=== PATIENT | male | born 1985 | race Hispanic/Latino ===

== ENCOUNTER 2016-08-27 17:09 | Emergency (ER) | payer OTHER ==
[2016-08-27] MEDS ORDERED: PANTOPRAZOLE 40MG INJ (PROTONIX) (C9113) As Ordered ONE (19:42)
[2016-08-27] MEDS ORDERED: ONDANSETRON 4MG/2ML VIAL (J2405) As Ordered ONE (19:42)
[2016-08-27] MEDS ORDERED: KETOROLAC 30 MG/ML VIAL (J1885) As Ordered ONE (19:42)
[2016-08-27 19:51] LABS: BASO % 0.1 % (0.0-1.0); EOS # 0.2 K/mm3 (0.0-0.50); EOS % 1.3 % (0.0-3.0); LARGE UNSTAINED CELL # 0.1 K/mm3 (0.0-0.4); LARGE UNSTAINED CELL % 0.5 % (0.0-4.0); LYMPH # 0.4 K/mm3 (1.5-4.5); MEAN CORPUSCULAR HEMOGLOBIN 30.6 pg (27.0-33.0); MEAN CORPUSCULAR VOLUME 87.4 fl (80.0-96.0); MONO # 0.2 K/mm3 (0.0-0.8); MONO % 1.4 % (0.0-5.0); NEUTROPHILS # 11.4 K/mm3 (1.8-7.7); NEUTROPHILS % 93.7 % (36.0-66.0); PLATELET COUNT, AUTOMATED 226 k/mm3 (150-450); RED CELL DISTRIBUTION WIDTH 12.3 % (11.5-14.5); WHITE BLOOD COUNT 12.1 K/mm3 (4.0-10.0)
[2016-08-27 20:18] LABS: ALBUMIN 5.1 GM/DL (3.2-5.2); ALBUMIN/GLOBULIN RATIO 1.34 (1.00-1.93); ALKALINE PHOSPHATASE 90 U/L (45-117); ALT/SGPT 46 U/L (12-78); AMYLASE 31 U/L (25-115); ANION GAP 10 MEQ/L (8-16); AST/SGOT 26 U/L (15-37); BILIRUBIN,DIRECT 0.2 MG/DL (0.0-0.2); BILIRUBIN,TOTAL 0.8 MG/DL (0.2-1.0); BLOOD UREA NITROGEN 17 MG/DL (7-18); CALCIUM LEVEL 10.4 MG/DL (8.5-10.1); CARBON DIOXIDE LEVEL 26 MEQ/L (21-32); CHLORIDE LEVEL 104 MEQ/L (98-107); CREATININE FOR GFR 1.14 MG/DL (0.70-1.30); GLOMERULAR FILTRATION RATE > 60.0 (>60); GLUCOSE, FASTING 114 MG/DL (70-105); POTASSIUM SERUM 4.3 MEQ/L (3.5-5.1); SODIUM LEVEL 140 MEQ/L (136-145); TOTAL PROTEIN 8.9 GM/DL (6.4-8.2)
--- NOTE | 2016-08-27 21:33 | EDDOCDS ---
Nurse's Notes [facility] Name: Kevon Valdez Age: 30 yrs Sex: Male : 1985 Arrival Date: 08/27/2016 Time: 17:09 Bed I7 / 29 Private MD: OHKULDEEP GONZALEZ Diagnosis: Nausea and vomiting;Diarrhea, unspecified Presentation: 08/27 17:11 Presenting complaint: Patient states: vomiting diarrhea since 7am. weak and just srm doesn't feel good. chest hurts. Adult Sepsis Screening: The patient does not have new or worsening altered mentation. Patient's respiratory rate is less than 22. Systolic blood pressure is greater than 100. Patient has a qSOFA score of 0- Negative Sepsis Screen. Suicide/Homicide risk assessment- the patient denies having any suicidal and/or homicidal ideations and does not present with any other emotional, behavioral or mental health complaints. 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 Transition of care: patient was not received from another setting of care. 17:11 Acuity: DENISE Level 3 [facility] 17:11 Method Of Arrival: Walkin/Carried/Asstd [facility] Triage Assessment: 17:13 General: Appears uncomfortable, Behavior is appropriate for age, cooperative. Pain: srm Pain currently is 10 out of 10 on a pain scale. Pt Declines HIV testing. Historical: - Allergies: no known allergies; - Home Meds: 1. none - PMHx: back pain- lower; - PSHx: Hernia repair; right shoulder surgery; - Social history: Smoking status: Patient states former smoker of tobacco. No barriers to communication noted, The patient speaks fluent Korean, Speaks appropriately for age. - Family history: Not pertinent. - : The pt / caregiver states he / she is not on anticoagulants. Home medication list is obtained from the patient. - Exposure Risk Screening:: None identified. Screenin:53 Screening information is obtained from the patient. Fall risk: No risks identified. af2 Assistance ADL's: requires no assistance with activities of daily living. Abuse/DV Screen: The patient / caregiver reports he/she is: not in a situation that causes fear, pain or injury. Nutritional screening: No deficits noted. Advance Directives: Currently, there is no health care proxy. home support is adequate. Assessment: 19:30 General: Appears in no apparent distress, uncomfortable, Behavior is appropriate for af2 age, cooperative. Pain: Location: abdomen Pain currently is 6 out of 10 on a pain scale. Neurological: Level of Consciousness is awake, alert, obeys commands, Oriented to person, place, time. Cardiovascular: Heart tones S1 S2 present. Respiratory: Airway is patent Respiratory effort is even, unlabored, Breath sounds are clear bilaterally. GI: Abdomen is non- distended Bowel sounds present X 4 quads. Abd is soft and non tender X 4 quads. Reports diarrhea, lower abdominal pain, upper abd pain, nausea, vomiting. Derm: Skin is normal. 21:31 General: Appears in no apparent distress, Behavior is cooperative. Pain: Location: mcp abdomen Pain currently is 2 out of 10 on a pain scale. Neurological: No deficits noted. Respiratory: Airway is patent Respiratory effort is even, unlabored. GI: Abdomen is non- distended Abd is soft X 4 quads. Derm: Skin is pink, warm & dry. Vital Signs: 17:10 BP 139 / 86; Pulse 88; Resp 18 S; Temp 98.5(O); Pulse Ox 100% on R/A; Weight 78.93 kg dd6 (R); Height 5 ft. 9 in. (175.26 cm) (R); 20:30 Pain 2/10; mcp 21:27 BP 123 / 62; Pulse 95; Resp 18; Temp 99.1; Pulse Ox 98% ; Pain 0/10; ajs 17:10 Body Mass Index 25.70 (78.93 kg, 175.26 cm) dd6 Vitals: 17:10 Log In Time: August 27, 2016 at 17:08. dd6 ED Course: 17:09 Patient visited by Joselito Langley PCA. dd6 17:09 Patient moved to Waiting dd6 17:10 [facility], KULDEEP PRATHER is Private Physician. dd6 17:11 Patient moved to Pre RCE dd6 17:12 Triage Initiated srm 18:39 Patient moved to Triage 3 dy 18:41 Patient visited by Madelyn Landa PCA. jb5 18:56 Rolo Crawford RPA-C is PHCP. ck7 18:56 Sterling Robison DO is Attending Physician. ck7 18:56 Patient visited by Rolo Crawford RPA-C. ck7 19:12 Patient visited by Rolo Crawford RPA-C. ck7 19:26 Patient moved to b 19:39 Amylase Sent. af2 19:39 Basic Metabolic Profile Sent. af2 19:39 CBC with Diff Sent. af2 19:39 Lipase Sent. af2 19:39 Liver Profile Sent. af2 19:51 Patient visited by Lydia Sharp RN. af2 19:53 The patient / caregiver is instructed regarding the plan of care and ED course. Patient af2 has correct armband on for positive identification. Placed in gown. 19:53 Inserted saline lock: 20 gauge in left antecubital area and blood collected. The af2 patient tolerated the procedure well. 19:53 No procedures done that require assistance. af2 19:54 Patient visited by Lydia Sharp RN. af2 20:25 [facility] Payment Agreement was scanned into [employer] and attached to record. zo 20:28 Patient visited by Lydia Sharp RN. af2 21:02 Patient visited by Rolo Crawford RPA-C. ck7 21:20 [facility] ck7 21:28 Patient visited by Radha Ahumada. ajs 21:31 Discontinued lock intact, bleeding controlled, pressure dressing applied, No mcp redness/swelling at site. Administered Medications: 19:55 Drug: ketorolac 30 mg [ketorolac 30 mg/mL (1 mL) injection solution (1 mL)] {Note: drug af2 given in left ac iv per KURT Cabello} Route: IM; Site: left deltoid; 20:30 Follow up: Pain 2/10 Adult; Response: Pain is decreased mcp 19:56 Drug: NS 0.9% 1000 ml [sodium chloride 0.9 % intravenous solution] Route: IV; Rate: af2 bolus; Site: left antecubital; 21:30 Follow up: IV Status: Completed infusion; IV Intake: 1000ml mcp 19:56 Drug: Ondansetron 4 mg [ondansetron HCl 2 mg/mL intravenous solution (2 mL)] Route: af2 IVP; Site: left antecubital; 19:56 Drug: pantoprazole 40 mg [pantoprazole 40 mg intravenous solution] Route: IV; Rate: af2 bolus; Site: left antecubital; Intake: 21:30 IV: 1000.00ml; Total: 1000.00ml. mcp Order Results: Lab Order: Amylase; SPEC'M 08/27/16 19:37 Test: AMYLASE; Value: 31; Range: 25-115; Units: U/L; Status: F Lab Order: Basic Metabolic Profile; SPEC'M 08/27/16 19:37 Test: GLUCOSE, FASTING; Value: 114; Range: 70-105; Abnormal: Above high normal; Units: MG/DL; Status: F Test: BLOOD UREA NITROGEN; Value: 17; Range: 7-18; Units: MG/DL; Status: F Test: CREATININE FOR GFR; Value: 1.14; Range: 0.70-1.30; Units: MG/DL; Status: F Test: GLOMERULAR FILTRATION RATE; Value: > 60.0; Range: >60; Status: F Test: SODIUM LEVEL; Value: 140; Range: 136-145; Units: MEQ/L; Status: F Test: POTASSIUM SERUM; Value: 4.3; Range: 3.5-5.1; Units: MEQ/L; Status: F Test: CHLORIDE LEVEL; Value: 104; Range: 98-107; Units: MEQ/L; Status: F Test: CARBON DIOXIDE LEVEL; Value: 26; Range: 21-32; Units: MEQ/L; Status: F Test: ANION GAP; Value: 10; Range: 8-16; Units: MEQ/L; Status: F Test: CALCIUM LEVEL; Value: 10.4; Range: 8.5-10.1; Abnormal: Above high normal; Units: MG/DL; Status: F Test Note: ; Units are mL/min/1.73 m2 Chronic Kidney Disease Staging per NKF: Stage I & II GFR >=60 Normal to Mildly Decreased Stage III GFR 30-59 Moderately Decreased Stage IV GFR 15-29 Severely Decreased Stage V GFR <15 Very Little GFR Left ESRD GFR <15 on SUPERVISOR OF GUIDANCE AND TESTING Lab Order: CBC with Diff; SPEC'M 08/27/16 19:37 Test: WHITE BLOOD COUNT; Value: 12.1; Range: 4.0-10.0; Abnormal: Above high normal; Units: K/mm3; Status: F Test: RED BLOOD COUNT; Value: 5.59; Range: 4.30-6.10; Units: M/mm3; Status: F Test: HEMOGLOBIN; Value: 17.1; Range: 14.0-18.0; Units: g/dl; Status: F Test: HEMATOCRIT; Value: 48.9; Range: 42.0-52.0; Units: %; Status: F Test: MEAN CORPUSCULAR VOLUME; Value: 87.4; Range: 80.0-96.0; Units: fl; Status: F Test: MEAN CORPUSCULAR HEMOGLOBIN; Value: 30.6; Range: 27.0-33.0; Units: pg; Status: F Test: MEAN CORPUSCULAR HGB CONC; Value: 35.0; Range: 32.0-36.5; Units: g/dl; Status: F Test: RED CELL DISTRIBUTION WIDTH; Value: 12.3; Range: 11.5-14.5; Units: %; Status: F Test: PLATELET COUNT, AUTOMATED; Value: 226; Range: 150-450; Units: k/mm3; Status: F Test: NEUTROPHILS %; Value: 93.7; Range: 36.0-66.0; Abnormal: Above high normal; Units: %; Status: F Test: LYMPH %; Value: 3.0; Range: 24.0-44.0; Abnormal: Below low normal; Units: %; Status: F Test: MONO %; Value: 1.4; Range: 0.0-5.0; Units: %; Status: F Test: EOS %; Value: 1.3; Range: 0.0-3.0; Units: %; Status: F Test: BASO %; Value: 0.1; Range: 0.0-1.0; Units: %; Status: F Test: LARGE UNSTAINED CELL %; Value: 0.5; Range: 0.0-4.0; Units: %; Status: F Test: NEUTROPHILS #; Value: 11.4; Range: 1.8-7.7; Abnormal: Above high normal; Units: K/mm3; Status: F Test: LYMPH #; Value: 0.4; Range: 1.5-4.5; Abnormal: Below low normal; Units: K/mm3; Status: F Test: MONO #; Value: 0.2; Range: 0.0-0.8; Units: K/mm3; Status: F Test: EOS #; Value: 0.2; Range: 0.0-0.50; Units: K/mm3; Status: F Test: BASO #; Value: 0.0; Range: 0.0-0.2; Units: K/mm3; Status: F Test: LARGE UNSTAINED CELL #; Value: 0.1; Range: 0.0-0.4; Units: K/mm3; Status: F Lab Order: Lipase; SPEC'M 08/27/16 19:37 Test: LIPASE; Value: 64; Range: 73-393; Abnormal: Below low normal; Units: U/L; Status: F Lab Order: Liver Profile; SPEC'M 08/27/16 19:37 Test: AST/SGOT; Value: 26; Range: 15-37; Units: U/L; Status: F Test: ALT/SGPT; Value: 46; Range: 12-78; Units: U/L; Status: F Test: ALKALINE PHOSPHATASE; Value: 90; Range: 45-117; Units: U/L; Status: F Test: BILIRUBIN,TOTAL; Value: 0.8; Range: 0.2-1.0; Units: MG/DL; Status: F Test: BILIRUBIN,DIRECT; Value: 0.2; Range: 0.0-0.2; Units: MG/DL; Status: F Test: TOTAL PROTEIN; Value: 8.9; Range: 6.4-8.2; Abnormal: Above high normal; Units: GM/DL; Status: F Test: ALBUMIN; Value: 5.1; Range: 3.2-5.2; Units: GM/DL; Status: F Test: ALBUMIN/GLOBULIN RATIO; Value: 1.34; Range: 1.00-1.93; Status: F Outcome: 21:20 Discharge ordered by Provider. ck7 21:32 Discharge Assessment: patient administered narcotics - no. The following High Risk mcp Discharge criteria are identified: None. Discharged to home ambulatory, with family. Condition: stable. Discharge instructions given to patient, Instructed on discharge instructions, follow up and referral plans. medication usage, diet, Demonstrated understanding of instructions, medications, Pt was receptive of discharge instructions/ teaching. Prescriptions given X 2. No special radiology studies were completed. Property sent home with patient. 21:32 Patient left the ED. mcp Signatures: Haily Linn, RN RN Cheryl Boothe RN Jean Marie Canseco mcp, Madelyn Milligan RN, SOCIOLOGY INSTRUCTOR SOCIOLOGY INSTRUCTOR jb5 Rocky, Joselito Bush, SOCIOLOGY INSTRUCTOR SOCIOLOGY INSTRUCTOR dd6 Radha Ahumada Christopher, RPA-C RPA-Cck7 Orlin Franco RN RN jmb [place], AmberRN YARA af2 Corrections: (The following items were deleted from the chart) 17:13 17:13 HIV screening NA for this visit Offered previously. srm srm MTDD
--- NOTE | 2016-08-27 21:33 | EDDOCDS ---
Physician Documentation [facility] Name: Kevon Valdez Age: 30 yrs Sex: Male : 1985 Arrival Date: 08/27/2016 Time: 17:09 Bed I7 / 29 [facility] Disposition: 08/27/16 21:20 Discharged to Home/Self Care. Impression: Nausea and vomiting, Diarrhea, unspecified. - Condition is Stable. - Discharge Instructions: Diarrhea, Nausea and Vomiting. - Prescriptions for Prilosec 20 mg Oral Capsule - take 1 capsule by ORAL route once daily; 10 capsule. ZOFRAN ODT 4 mg - dissolve 1 tablet by ORAL route 4 times per day As needed do not chew, do not swallow whole; 10 tablet. - Medication Reconciliation, Local Pharmacy Hours form. - [facility]; When: 2 - 3 days; Reason: Recheck today's complaints, Continuance of care. - Problem is new. - Symptoms have improved. - Notes: USE MEDICATIONS INSTRUCTED, FOLLOW UP WITH YOUR DOCTOR IN 2-3 DAYS, RETURN TO THE ER IF THE SYMPTOMS WORSEN OR BECOME CONCERNING Historical: - Allergies: no known allergies; - Home Meds: 1. none - PMHx: back pain- lower; - PSHx: Hernia repair; right shoulder surgery; - Social history: Smoking status: Patient states former smoker of tobacco. No barriers to communication noted, The patient speaks fluent Maori, Speaks appropriately for age. - Family history: Not pertinent. - : The pt / caregiver states he / she is not on anticoagulants. Home medication list is obtained from the patient. - Exposure Risk Screening:: None identified. Vital Signs: 08/27 17:10 BP 139 / 86; Pulse 88; Resp 18 S; Temp 98.5(O); Pulse Ox 100% on R/A; Weight 78.93 kg / dd6 174.01 lbs (R); Height 5 ft. 9 in. (175.26 cm) (R); 20:30 Pain 2/10; mcp 21:27 BP 123 / 62; Pulse 95; Resp 18; Temp 99.1; Pulse Ox 98% ; Pain 0/10; ajs 17:10 Body Mass Index 25.70 (78.93 kg, 175.26 cm) dd6 MDM: 19:26 Undress patient appropriately for examination ordered. ck7 19:26 IV Saline Lock ordered. ck7 19:26 NS 0.9% 1000 ml IV at bolus once ordered. ck7 19:26 Ondansetron 4 mg IVP once ordered. ck7 19:26 pantoprazole 40 mg IV at bolus once ordered. ck7 19:26 ketorolac 30 mg IM once ordered. ck7 19:27 Amylase Ordered. EDMS 19:27 Basic Metabolic Profile Ordered. EDMS 19:27 CBC with Diff Ordered. EDMS 19:27 Lipase Ordered. EDMS 19:27 Liver Profile Ordered. EDMS 19:28 NOTHING BY MOUTH+DIET ordered. EDMS 20:18 Financial registration complete. zo 20:21 Basic Metabolic Profile Reviewed. ck7 20:21 CBC with Diff Reviewed. ck7 20:21 Lipase Reviewed. ck7 20:21 Liver Profile Reviewed. ck7 20:21 Amylase Reviewed. ck7 20:25 [facility] [place] was scanned into [employer] and attached to record. zo 21:05 Fluid Challenge ordered. ck7 Administered Medications: 19:55 Drug: ketorolac 30 mg [ketorolac 30 mg/mL (1 mL) injection solution (1 mL)] {Note: drug af2 given in left ac iv per KURT Cabello} Route: IM; Site: left deltoid; 20:30 Follow up: Pain 2/10 Adult; Response: Pain is decreased mcp 19:56 Drug: NS 0.9% 1000 ml [sodium chloride 0.9 % intravenous solution] Route: IV; Rate: af2 bolus; Site: left antecubital; 21:30 Follow up: IV Status: Completed infusion; IV Intake: 1000ml mcp 19:56 Drug: Ondansetron 4 mg [ondansetron HCl 2 mg/mL intravenous solution (2 mL)] Route: af2 IVP; Site: left antecubital; 19:56 Drug: pantoprazole 40 mg [pantoprazole 40 mg intravenous solution] Route: IV; Rate: af2 bolus; Site: left antecubital; Signatures: Dispatcher [employer] EDMS Haily Linn RN RN srm Peters, Mary, RN RN [facility] Fausto Hidalgo Christopher, RAFAEL-C RPA-Cck7 Lydia Sharp RN RN af2 The chart was reviewed and I authenticate all verbal orders and agree with the evaluation and treatment provided.Attachments: 20:25 [facility] Payment Agreement zo MTDD
--- NOTE | 2016-08-29 22:33 | EDDOCDS ---
Physician Documentation [facility] Name: Kevon Valdez Age: 30 yrs Sex: Male : 1985 Arrival Date: 08/27/2016 Time: 17:09 Bed I7 / 29 [facility] Disposition: 08/27/16 21:20 Discharged to Home/Self Care. Impression: Nausea and vomiting, Diarrhea, unspecified. - Condition is Stable. - Discharge Instructions: Diarrhea, Nausea and Vomiting. - Prescriptions for Prilosec 20 mg Oral Capsule - take 1 capsule by ORAL route once daily; 10 capsule. ZOFRAN ODT 4 mg - dissolve 1 tablet by ORAL route 4 times per day As needed do not chew, do not swallow whole; 10 tablet. - Medication Reconciliation, Local Pharmacy Hours form. - [facility]; When: 2 - 3 days; Reason: Recheck today's complaints, Continuance of care. - Problem is new. - Symptoms have improved. - Notes: USE MEDICATIONS INSTRUCTED, FOLLOW UP WITH YOUR DOCTOR IN 2-3 DAYS, RETURN TO THE ER IF THE SYMPTOMS WORSEN OR BECOME CONCERNING Historical: - Allergies: no known allergies; - Home Meds: 1. none - PMHx: back pain- lower; - PSHx: Hernia repair; right shoulder surgery; - Social history: Smoking status: Patient states former smoker of tobacco. No barriers to communication noted, The patient speaks fluent [place], Speaks appropriately for age. - Family history: Not pertinent. - : The pt / caregiver states he / she is not on anticoagulants. Home medication list is obtained from the patient. - Exposure Risk Screening:: None identified. Vital Signs: 08/27 17:10 BP 139 / 86; Pulse 88; Resp 18 S; Temp 98.5(O); Pulse Ox 100% on R/A; Weight 78.93 kg / dd6 174.01 lbs (R); Height 5 ft. 9 in. (175.26 cm) (R); 20:30 Pain 2/10; mcp 21:27 BP 123 / 62; Pulse 95; Resp 18; Temp 99.1; Pulse Ox 98% ; Pain 0/10; ajs 17:10 Body Mass Index 25.70 (78.93 kg, 175.26 cm) dd6 MDM: 19:26 Undress patient appropriately for examination ordered. ck7 19:26 IV Saline Lock ordered. ck7 19:26 NS 0.9% 1000 ml IV at bolus once ordered. ck7 19:26 Ondansetron 4 mg IVP once ordered. ck7 19:26 pantoprazole 40 mg IV at bolus once ordered. ck7 19:26 ketorolac 30 mg IM once ordered. ck7 19:27 Amylase Ordered. EDMS 19:27 Basic Metabolic Profile Ordered. EDMS 19:27 CBC with Diff Ordered. EDMS 19:27 Lipase Ordered. EDMS 19:27 Liver Profile Ordered. EDMS 19:28 NOTHING BY MOUTH+DIET ordered. EDMS 20:18 Financial registration complete. zo 20:21 Basic Metabolic Profile Reviewed. ck7 20:21 CBC with Diff Reviewed. ck7 20:21 Lipase Reviewed. ck7 20:21 Liver Profile Reviewed. ck7 20:21 Amylase Reviewed. ck7 20:25 [facility] [place] Agreement was scanned into [employer] and attached to record. zo 21:05 Fluid Challenge ordered. ck7 08/28 09:04 T-Sheet-- Draft Copy was scanned into [employer] and attached to record. gb Administered Medications: 08/27 19:55 Drug: ketorolac 30 mg [ketorolac 30 mg/mL (1 mL) injection solution (1 mL)] {Note: drug af2 given in left ac iv per KURT Cabello} Route: IM; Site: left deltoid; 20:30 Follow up: Pain 2/10 Adult; Response: Pain is decreased [facility] 19:56 Drug: NS 0.9% 1000 ml [sodium chloride 0.9 % intravenous solution] Route: IV; Rate: af2 bolus; Site: left antecubital; 21:30 Follow up: IV Status: Completed infusion; IV Intake: 1000ml [facility] 19:56 Drug: Ondansetron 4 mg [ondansetron HCl 2 mg/mL intravenous solution (2 mL)] Route: af2 IVP; Site: left antecubital; 19:56 Drug: pantoprazole 40 mg [pantoprazole 40 mg intravenous solution] Route: IV; Rate: af2 bolus; Site: left antecubital; Signatures: Dispatcher [employer] EDMS Haily Linn RN RN srm Peters, Mary, RN RN [facility] Marycarmen Snow, Reg Reg gb Fausto Hidalgo Christopher, RPA-C RPA-Cck7 Lydia Sharp,RN RN af2 The chart was reviewed and I authenticate all verbal orders and agree with the evaluation and treatment provided.Attachments: 20:25 [facility] Payment Agreement zo 08/28 09:04 T-Sheet-- Draft Copy gb Chart Complete MTDD
--- NOTE | 2016-08-29 22:33 | EDDOCDS ---
Nurse's Notes [facility] Name: Kevon Valdez Age: 30 yrs Sex: Male : 1985 Arrival Date: 08/27/2016 Time: 17:09 Bed I7 / 29 Private MD: MEKULDEEP GONZALEZ Diagnosis: Nausea and vomiting;Diarrhea, unspecified Presentation: 08/27 17:11 Presenting complaint: Patient states: vomiting diarrhea since 7am. weak and just srm doesn't feel good. chest hurts. Adult Sepsis Screening: The patient does not have new or worsening altered mentation. Patient's respiratory rate is less than 22. Systolic blood pressure is greater than 100. Patient has a qSOFA score of 0- Negative Sepsis Screen. Suicide/Homicide risk assessment- the patient denies having any suicidal and/or homicidal ideations and does not present with any other emotional, behavioral or mental health complaints. 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 Transition of care: patient was not received from another setting of care. 17:11 Acuity: DENISE Level 3 [facility] 17:11 Method Of Arrival: Walkin/Carried/Asstd [facility] Triage Assessment: 17:13 General: Appears uncomfortable, Behavior is appropriate for age, cooperative. Pain: srm Pain currently is 10 out of 10 on a pain scale. Pt Declines HIV testing. Historical: - Allergies: no known allergies; - Home Meds: 1. none - PMHx: back pain- lower; - PSHx: Hernia repair; right shoulder surgery; - Social history: Smoking status: Patient states former smoker of tobacco. No barriers to communication noted, The patient speaks fluent Sinhala, Speaks appropriately for age. - Family history: Not pertinent. - : The pt / caregiver states he / she is not on anticoagulants. Home medication list is obtained from the patient. - Exposure Risk Screening:: None identified. Screenin:53 Screening information is obtained from the patient. Fall risk: No risks identified. af2 Assistance ADL's: requires no assistance with activities of daily living. Abuse/DV Screen: The patient / caregiver reports he/she is: not in a situation that causes fear, pain or injury. Nutritional screening: No deficits noted. Advance Directives: Currently, there is no health care proxy. home support is adequate. Assessment: 19:30 General: Appears in no apparent distress, uncomfortable, Behavior is appropriate for af2 age, cooperative. Pain: Location: abdomen Pain currently is 6 out of 10 on a pain scale. Neurological: Level of Consciousness is awake, alert, obeys commands, Oriented to person, place, time. Cardiovascular: Heart tones S1 S2 present. Respiratory: Airway is patent Respiratory effort is even, unlabored, Breath sounds are clear bilaterally. GI: Abdomen is non- distended Bowel sounds present X 4 quads. Abd is soft and non tender X 4 quads. Reports diarrhea, lower abdominal pain, upper abd pain, nausea, vomiting. Derm: Skin is normal. 21:31 General: Appears in no apparent distress, Behavior is cooperative. Pain: Location: mcp abdomen Pain currently is 2 out of 10 on a pain scale. Neurological: No deficits noted. Respiratory: Airway is patent Respiratory effort is even, unlabored. GI: Abdomen is non- distended Abd is soft X 4 quads. Derm: Skin is pink, warm & dry. Vital Signs: 17:10 BP 139 / 86; Pulse 88; Resp 18 S; Temp 98.5(O); Pulse Ox 100% on R/A; Weight 78.93 kg dd6 (R); Height 5 ft. 9 in. (175.26 cm) (R); 20:30 Pain 2/10; mcp 21:27 BP 123 / 62; Pulse 95; Resp 18; Temp 99.1; Pulse Ox 98% ; Pain 0/10; ajs 17:10 Body Mass Index 25.70 (78.93 kg, 175.26 cm) dd6 Vitals: 17:10 Log In Time: August 27, 2016 at 17:08. dd6 ED Course: 17:09 Patient visited by Joselito Langley PCA. dd6 17:09 Patient moved to Waiting dd6 17:10 [facility], KULDEEP PRATHER is Private Physician. dd6 17:11 Patient moved to Pre RCE dd6 17:12 Triage Initiated srm 18:39 Patient moved to Triage 3 dy 18:41 Patient visited by Madelyn Landa PCA. jb5 18:56 Rolo Crawford RPA-C is PHCP. ck7 18:56 Sterling Robison DO is Attending Physician. ck7 18:56 Patient visited by Rolo Crawford RPA-C. ck7 19:12 Patient visited by Rolo Crawford RPA-C. ck7 19:26 Patient moved to b 19:39 Amylase Sent. af2 19:39 Basic Metabolic Profile Sent. af2 19:39 CBC with Diff Sent. af2 19:39 Lipase Sent. af2 19:39 Liver Profile Sent. af2 19:51 Patient visited by Lydia Sharp RN. af2 19:53 The patient / caregiver is instructed regarding the plan of care and ED course. Patient af2 has correct armband on for positive identification. Placed in gown. 19:53 Inserted saline lock: 20 gauge in left antecubital area and blood collected. The af2 patient tolerated the procedure well. 19:53 No procedures done that require assistance. af2 19:54 Patient visited by Lydia Sharp RN. af2 20:25 [facility] Payment Agreement was scanned into [employer] and attached to record. zo 20:28 Patient visited by Lydia Sharp RN. af2 21:02 Patient visited by Rolo Crawford RPA-C. ck7 21:20 [facility]. ck7 21:28 Patient visited by Radha Ahumada. ajs 21:31 Discontinued lock intact, bleeding controlled, pressure dressing applied, No mcp redness/swelling at site. 08/28 09:04 T-Sheet-- Draft Copy was scanned into [employer] and attached to record. gb Administered Medications: 08/27 19:55 Drug: ketorolac 30 mg [ketorolac 30 mg/mL (1 mL) injection solution (1 mL)] {Note: drug af2 given in left ac iv per KURT Cabello} Route: IM; Site: left deltoid; 20:30 Follow up: Pain 2/10 Adult; Response: Pain is decreased mcp 19:56 Drug: NS 0.9% 1000 ml [sodium chloride 0.9 % intravenous solution] Route: IV; Rate: af2 bolus; Site: left antecubital; 21:30 Follow up: IV Status: Completed infusion; IV Intake: 1000ml mcp 19:56 Drug: Ondansetron 4 mg [ondansetron HCl 2 mg/mL intravenous solution (2 mL)] Route: af2 IVP; Site: left antecubital; 19:56 Drug: pantoprazole 40 mg [pantoprazole 40 mg intravenous solution] Route: IV; Rate: af2 bolus; Site: left antecubital; Intake: 21:30 IV: 1000.00ml; Total: 1000.00ml. mcp Order Results: Lab Order: Amylase; SPEC'M 08/27/16 19:37 Test: AMYLASE; Value: 31; Range: 25-115; Units: U/L; Status: F Lab Order: Basic Metabolic Profile; SPEC'M 08/27/16 19:37 Test: GLUCOSE, FASTING; Value: 114; Range: 70-105; Abnormal: Above high normal; Units: MG/DL; Status: F Test: BLOOD UREA NITROGEN; Value: 17; Range: 7-18; Units: MG/DL; Status: F Test: CREATININE FOR GFR; Value: 1.14; Range: 0.70-1.30; Units: MG/DL; Status: F Test: GLOMERULAR FILTRATION RATE; Value: > 60.0; Range: >60; Status: F Test: SODIUM LEVEL; Value: 140; Range: 136-145; Units: MEQ/L; Status: F Test: POTASSIUM SERUM; Value: 4.3; Range: 3.5-5.1; Units: MEQ/L; Status: F Test: CHLORIDE LEVEL; Value: 104; Range: 98-107; Units: MEQ/L; Status: F Test: CARBON DIOXIDE LEVEL; Value: 26; Range: 21-32; Units: MEQ/L; Status: F Test: ANION GAP; Value: 10; Range: 8-16; Units: MEQ/L; Status: F Test: CALCIUM LEVEL; Value: 10.4; Range: 8.5-10.1; Abnormal: Above high normal; Units: MG/DL; Status: F Test Note: ; Units are mL/min/1.73 m2 Chronic Kidney Disease Staging per NKF: Stage I & II GFR >=60 Normal to Mildly Decreased Stage III GFR 30-59 Moderately Decreased Stage IV GFR 15-29 Severely Decreased Stage V GFR <15 Very Little GFR Left ESRD GFR <15 on CURING RO[employer] WORKER Lab Order: CBC with Diff; SPEC'M 08/27/16 19:37 Test: WHITE BLOOD COUNT; Value: 12.1; Range: 4.0-10.0; Abnormal: Above high normal; Units: K/mm3; Status: F Test: RED BLOOD COUNT; Value: 5.59; Range: 4.30-6.10; Units: M/mm3; Status: F Test: HEMOGLOBIN; Value: 17.1; Range: 14.0-18.0; Units: g/dl; Status: F Test: HEMATOCRIT; Value: 48.9; Range: 42.0-52.0; Units: %; Status: F Test: MEAN CORPUSCULAR VOLUME; Value: 87.4; Range: 80.0-96.0; Units: fl; Status: F Test: MEAN CORPUSCULAR HEMOGLOBIN; Value: 30.6; Range: 27.0-33.0; Units: pg; Status: F Test: MEAN CORPUSCULAR HGB CONC; Value: 35.0; Range: 32.0-36.5; Units: g/dl; Status: F Test: RED CELL DISTRIBUTION WIDTH; Value: 12.3; Range: 11.5-14.5; Units: %; Status: F Test: PLATELET COUNT, AUTOMATED; Value: 226; Range: 150-450; Units: k/mm3; Status: F Test: NEUTROPHILS %; Value: 93.7; Range: 36.0-66.0; Abnormal: Above high normal; Units: %; Status: F Test: LYMPH %; Value: 3.0; Range: 24.0-44.0; Abnormal: Below low normal; Units: %; Status: F Test: MONO %; Value: 1.4; Range: 0.0-5.0; Units: %; Status: F Test: EOS %; Value: 1.3; Range: 0.0-3.0; Units: %; Status: F Test: BASO %; Value: 0.1; Range: 0.0-1.0; Units: %; Status: F Test: LARGE UNSTAINED CELL %; Value: 0.5; Range: 0.0-4.0; Units: %; Status: F Test: NEUTROPHILS #; Value: 11.4; Range: 1.8-7.7; Abnormal: Above high normal; Units: K/mm3; Status: F Test: LYMPH #; Value: 0.4; Range: 1.5-4.5; Abnormal: Below low normal; Units: K/mm3; Status: F Test: MONO #; Value: 0.2; Range: 0.0-0.8; Units: K/mm3; Status: F Test: EOS #; Value: 0.2; Range: 0.0-0.50; Units: K/mm3; Status: F Test: BASO #; Value: 0.0; Range: 0.0-0.2; Units: K/mm3; Status: F Test: LARGE UNSTAINED CELL #; Value: 0.1; Range: 0.0-0.4; Units: K/mm3; Status: F Lab Order: Lipase; SPEC'M 08/27/16 19:37 Test: LIPASE; Value: 64; Range: 73-393; Abnormal: Below low normal; Units: U/L; Status: F Lab Order: Liver Profile; SPEC'M 08/27/16 19:37 Test: AST/SGOT; Value: 26; Range: 15-37; Units: U/L; Status: F Test: ALT/SGPT; Value: 46; Range: 12-78; Units: U/L; Status: F Test: ALKALINE PHOSPHATASE; Value: 90; Range: 45-117; Units: U/L; Status: F Test: BILIRUBIN,TOTAL; Value: 0.8; Range: 0.2-1.0; Units: MG/DL; Status: F Test: BILIRUBIN,DIRECT; Value: 0.2; Range: 0.0-0.2; Units: MG/DL; Status: F Test: TOTAL PROTEIN; Value: 8.9; Range: 6.4-8.2; Abnormal: Above high normal; Units: GM/DL; Status: F Test: ALBUMIN; Value: 5.1; Range: 3.2-5.2; Units: GM/DL; Status: F Test: ALBUMIN/GLOBULIN RATIO; Value: 1.34; Range: 1.00-1.93; Status: F Outcome: 21:20 Discharge ordered by Provider. ck7 21:32 Discharge Assessment: patient administered narcotics - no. The following High Risk mcp Discharge criteria are identified: None. Discharged to home ambulatory, with family. Condition: stable. Discharge instructions given to patient, Instructed on discharge instructions, follow up and referral plans. medication usage, diet, Demonstrated understanding of instructions, medications, Pt was receptive of discharge instructions/ teaching. Prescriptions given X 2. No special radiology studies were completed. Property sent home with patient. 21:32 Patient left the ED. [facility] Signatures: Haily Linn, RN RN Cheryl Boothe RN RN Marycarmen Avila, Reg Reg Jean Marie Damon, RN RN Madelyn Talley, VARIETY PERFORMER VARIETY PERFORMER jb5 Rocky, Fausto zo Joselito Langley, VARIETY PERFORMER VARIETY PERFORMER dd6 Radha Ahumada Christopher, RPA-C RPA-Cck7 Orlin Franco RN RN jmb Fulton, Amber, RN RN af2 Corrections: (The following items were deleted from the chart) 17:13 17:13 HIV screening NA for this visit Offered previously. srm srm Chart Complete MTDD
--- NOTE | 2016-08-29 22:33 | EDDOCDS ---
Physician Documentation [facility] Name: Kevon Valdez Age: 30 yrs Sex: Male : 1985 Arrival Date: 08/27/2016 Time: 17:09 Bed I7 / 29 [facility] Disposition: 08/27/16 21:20 Discharged to Home/Self Care. Impression: Nausea and vomiting, Diarrhea, unspecified. - Condition is Stable. - Discharge Instructions: Diarrhea, Nausea and Vomiting. - Prescriptions for Prilosec 20 mg Oral Capsule - take 1 capsule by ORAL route once daily; 10 capsule. ZOFRAN ODT 4 mg - dissolve 1 tablet by ORAL route 4 times per day As needed do not chew, do not swallow whole; 10 tablet. - Medication Reconciliation, Local Pharmacy Hours form. - [facility]; When: 2 - 3 days; Reason: Recheck today's complaints, Continuance of care. - Problem is new. - Symptoms have improved. - Notes: USE MEDICATIONS INSTRUCTED, FOLLOW UP WITH YOUR DOCTOR IN 2-3 DAYS, RETURN TO THE ER IF THE SYMPTOMS WORSEN OR BECOME CONCERNING Historical: - Allergies: no known allergies; - Home Meds: 1. none - PMHx: back pain- lower; - PSHx: Hernia repair; right shoulder surgery; - Social history: Smoking status: Patient states former smoker of tobacco. No barriers to communication noted, The patient speaks fluent Estonian, Speaks appropriately for age. - Family history: Not pertinent. - : The pt / caregiver states he / she is not on anticoagulants. Home medication list is obtained from the patient. - Exposure Risk Screening:: None identified. Vital Signs: 08/27 17:10 BP 139 / 86; Pulse 88; Resp 18 S; Temp 98.5(O); Pulse Ox 100% on R/A; Weight 78.93 kg / dd6 174.01 lbs (R); Height 5 ft. 9 in. (175.26 cm) (R); 20:30 Pain 2/10; mcp 21:27 BP 123 / 62; Pulse 95; Resp 18; Temp 99.1; Pulse Ox 98% ; Pain 0/10; ajs 17:10 Body Mass Index 25.70 (78.93 kg, 175.26 cm) dd6 MDM: 19:26 Undress patient appropriately for examination ordered. ck7 19:26 IV Saline Lock ordered. ck7 19:26 NS 0.9% 1000 ml IV at bolus once ordered. ck7 19:26 Ondansetron 4 mg IVP once ordered. ck7 19:26 pantoprazole 40 mg IV at bolus once ordered. ck7 19:26 ketorolac 30 mg IM once ordered. ck7 19:27 Amylase Ordered. EDMS 19:27 Basic Metabolic Profile Ordered. EDMS 19:27 CBC with Diff Ordered. EDMS 19:27 Lipase Ordered. EDMS 19:27 Liver Profile Ordered. EDMS 19:28 NOTHING BY MOUTH+DIET ordered. EDMS 20:18 Financial registration complete. zo 20:21 Basic Metabolic Profile Reviewed. ck7 20:21 CBC with Diff Reviewed. ck7 20:21 Lipase Reviewed. ck7 20:21 Liver Profile Reviewed. ck7 20:21 Amylase Reviewed. ck7 20:25 [facility] Payment Agreement was scanned into [employer] and attached to record. zo 21:05 Fluid Challenge ordered. ck7 08/28 09:04 T-Sheet-- Draft Copy was scanned into [employer] and attached to record. gb Administered Medications: 08/27 19:55 Drug: ketorolac 30 mg [ketorolac 30 mg/mL (1 mL) injection solution (1 mL)] {Note: drug af2 given in left ac iv per KURT Cabello} Route: IM; Site: left deltoid; 20:30 Follow up: Pain 2/10 Adult; Response: Pain is decreased [facility] 19:56 Drug: NS 0.9% 1000 ml [sodium chloride 0.9 % intravenous solution] Route: IV; Rate: af2 bolus; Site: left antecubital; 21:30 Follow up: IV Status: Completed infusion; IV Intake: 1000ml [facility] 19:56 Drug: Ondansetron 4 mg [ondansetron HCl 2 mg/mL intravenous solution (2 mL)] Route: af2 IVP; Site: left antecubital; 19:56 Drug: pantoprazole 40 mg [pantoprazole 40 mg intravenous solution] Route: IV; Rate: af2 bolus; Site: left antecubital; Signatures: Dispatcher [employer] EDMS Haily Linn RN RN srm Peters, Mary, RN RN [facility] Marycarmen Snow, Reg Reg gb Fausto Hidalgo Christopher, RPA-C RPA-Cck7 Lydia Sharp,RN RN af2 The chart was reviewed and I authenticate all verbal orders and agree with the evaluation and treatment provided.Attachments: 20:25 [facility] Payment Agreement zo 08/28 09:04 T-Sheet-- Draft Copy gb Chart Complete MTDD
== END 2016-08-27 21:32 | disposition home or self-care (01) ==
LOC: M ED 17:09
DX: R11.2 Nausea with vomiting, unspecified (principal); R19.7 Diarrhea, unspecified; M54.5 Low back pain; Z87.891 Personal history of nicotine dependence
CPT/HCPCS: 36415; 80048; 80076; 82150; 83690; 85025; 96361; 96372; 96374; 96375; 99284; C9113; J1885; J2405

== ENCOUNTER 2018-05-03 11:39 | Emergency (ER) | payer OTHER ==
[2018-05-03 14:49] LABS: CHLAMYDIA DNA AMPLIFICATION NEGATIVE (NEGATIVE); GC DNA AMPLIFICATION NEGATIVE (NEGATIVE)
== END 2018-05-03 12:28 | disposition home or self-care (01) ==
LOC: M ED 11:39
DX: N50.89 Other specified disorders of the male genital organs (principal); I10 Essential (primary) hypertension; F41.9 Anxiety disorder, unspecified; F17.200 Nicotine dependence, unspecified, uncomplicated; Z98.890 Other specified postprocedural states
CPT/HCPCS: 87591